=== PATIENT | female | born 1930 | race Caucasian/White ===

== ENCOUNTER 2018-12-11 07:31 | Outpatient (CLI) | payer MEDICARE ==
--- NOTE | 2018-12-11 10:20 | CT ---
PRE AND POSTCONTRAST SOFT TISSUE NECK CT: HISTORY: Hyperparathyroidism. Hypercalcemia. COMPARISON: None. CORRELATION: NM parathyroid 12/11/18 TECHNIQUE: Pre- and postcontrast soft tissue neck CT is performed in the axial plane. Reformatted images are kaur bmitted for interpretation. FINDINGS: Visualized brain parenchyma is unremarkable. Adequate aeration of the sinuses and mastoid air cells. Limited evaluation of the oral cavity due to dental amalgam artifact. Midline fatty raphae of the to ngue is preserved. Epiglottis has a normal caliber. Preepiglottic fat is preserved. There is no prevertebral soft tissue swelling. Varying degrees of central canal stenosis and foramin al narrowing on the basis of degenerative change. Symmetric attenuation of submandibular and parotid gland. Symmetric attenuation of sternocleidomasto id muscles. Heterogeneous thyroid gland. No evidence of lymphadenopathy by size criteria. Upper mediastinum is unremarkable. There are presumed chronic changes in the visualized lung parench yma. There is elevation of the right hemidiaphragm. Correlate for right hemidiaphragmatic paralysis . There is abnormal attenuation involving both shoulder joints, right greater than left. Along the anterior and slightly inferior to the lower pole of the left thyroid lobe is a 0.6 cm hypod ense lesion on the noncontrast sequence which does demonstrate enhancement on the postcontrast images . Parathyroid adenoma is favored. A 2nd smaller lesion, along the left paratracheal region with sim ilar attenuation is noted measuring 0.4 cm. IMPRESSION: 1. Heterogeneous thyroid gland. Nonemergent thyroid ultrasound. 2. Possible 2 separate parathyroid adenomas. The larger of the 2 parathyroid adenomas is inferior t o the lower pole left thyroid lobe and is felt to correspond to the nuclear medicine exam performed a fter this CT. There is a 2nd smaller parathyroid adenoma along the left paratracheal region. POS: [facility]
--- NOTE | 2018-12-11 13:15 | NM ---
NUCLEAR MEDICINE PARATHYROID PLANAR SCAN WITH SPECT IMAGING INDICATION: Hypercalcemia Radiopharmaceutical: 23.5 mCi technetium 99m sestamibi IV TECHNIQUE: Immediate, 1 hour and 2 hour images were obtained with planar imaging. One hour SPECT imag ing were obtained. FINDINGS: There is a small nodular focus of interest increased radionuclide accumulation involving inferior josh e of the left thyroid gland that persists on the delayed images suspicious for a small parathyroid adenoma. IMPRESSION: Small focus of radionuclide accumulation within the inferior pole left thyroid gland susp icious for a parathyroid adenoma. Recommend correlation with cross-sectional imaging.
[2018-12-11] MEDS ORDERED: Iopamidol 370 76% 100 ML VIAL ONE (14:59)
== END 2018-12-11 07:32 | disposition home or self-care (01) ==
LOC: CT 07:31
PROVIDERS: ATTEND Otolaryngology Plastic Surgery within the Head & Neck
DX: E83.52 Hypercalcemia (principal); E21.0 Primary hyperparathyroidism; D35.1 Benign neoplasm of parathyroid gland
CPT/HCPCS: 70492; 78072; 82565; A9500; Q9967